=== PATIENT | male | born 1960 | race Native Hawaiian/Other Pacific Islander ===

== ENCOUNTER 2019-05-13 20:28 | Outpatient (CLI) | payer OTHER ==
[~2019-05-13 20:28] MED LIST: ADIPEX PO; BENA10TA3 PO; HYDR25TA60 PO
== END 2019-05-13 21:07 | disposition home or self-care (01) ==
LOC: LAB 20:28
DX: L03.818 Cellulitis of other sites (principal)

== ENCOUNTER 2019-06-25 05:44 | Emergency (ER) | payer OTHER ==
[~2019-06-25] VITALS: Ht 182.9 cm; Wt 94.8 kg
[2019-06-25 06:14] LABS: PLATELET COUNT 404 K/uL (142-355)
[2019-06-25 06:24] LABS: POTASSIUM 3.7 mmol/L (3.6-5.2)
[2019-06-25 07:46] VITALS: BP 124/72; TEMP 98.3
== END 2019-06-25 07:47 | disposition home or self-care (01) ==
LOC: ED 05:44
PROVIDERS: Emergency Medicine
DX: K52.89 Other specified noninfective gastroenteritis and colitis (principal); R10.84 Generalized abdominal pain
CPT/HCPCS: 36415; 80053; 82150; 83605; 83690; 85027; 96360; 96361; 96375; 99284; J1885; J2175; J2405

== ENCOUNTER 2019-06-29 16:50 | Inpatient (IN) | payer OTHER ==
[~2019-06-29] VITALS: Ht 182.9 cm; Wt 98.5 kg
[2019-06-29 18:47] VITALS: BP 112/67; TEMP 98.5; Ht 182.9 cm; Wt 98.5 kg
[2019-06-29 19:55] LABS: PLATELET COUNT 387 K/uL (142-355)
[2019-06-29 19:58] VITALS: BP 112/67; TEMP 98.4
[2019-06-29 23:55] VITALS: BP 128/66; TEMP 98.6
[2019-06-30] MEDS ORDERED: TEMA30CA18 PO (03:40)
[2019-06-30] MEDS ORDERED: EDLUAR10 MG SL (03:44)
[2019-06-30] MEDS ORDERED: OMEPRAZOLE DR20 MG PO (03:50)
[2019-06-30 04:00] VITALS: BP 109/54; TEMP 98.7
[2019-06-30] MEDS ORDERED: PRAVACHOL80 MG PO (07:32)
[2019-06-30] MEDS ORDERED: GLIP10TA55 PO (07:33)
[2019-06-30] MEDS ORDERED: METFORMIN ER1000 MG PO (07:33)
[2019-06-30] MEDS ORDERED: AMLODIPINE BESYLATE PO (07:35)
[2019-06-30] MEDS ORDERED: AMIT25TA22 PO (07:36)
[2019-06-30] MEDS ORDERED: HYDR10TA51 PO (07:38)
[2019-06-30 08:00] VITALS: BP 116/67; TEMP 98.3
[2019-06-30 12:00] VITALS: BP 101/46; TEMP 98
[2019-06-30 16:00] VITALS: BP 121/66; TEMP 98.2
[2019-06-30 17:33] LABS: PLATELET COUNT 376 K/uL (142-355)
[2019-06-30 17:44] LABS: POTASSIUM 3.5 mmol/L (3.6-5.2)
[2019-06-30 20:00] VITALS: BP 140/73; TEMP 99
[2019-07-01] VITALS (7 sets, daily range): BP systolic 99–142; BP diastolic 48–73; TEMP 97.1–98.5
[2019-07-01 15:46] LABS: PLATELET COUNT 359 K/uL (142-355)
[2019-07-01 15:55] LABS: POTASSIUM 3.8 mmol/L (3.6-5.2)
[2019-07-02 04:00] VITALS: BP 140/65; TEMP 98.1
[2019-07-02 04:57] LABS: PLATELET COUNT 338 K/uL (142-355)
[2019-07-02 05:06] LABS: POTASSIUM 4.1 mmol/L (3.6-5.2)
[2019-07-02 08:25] VITALS: BP 145/73; TEMP 98.5
[2019-07-02 12:00] VITALS: BP 153/84; TEMP 98.5
[2019-07-02 16:00] VITALS: BP 164/70; TEMP 98.5
[2019-07-02 20:00] VITALS: BP 124/70; TEMP 98.5
[2019-07-03] VITALS: BP 137/69; TEMP 98.4
[2019-07-03 04:00] VITALS: BP 133/65; TEMP 98.74
[2019-07-03 05:45] LABS: PLATELET COUNT 379 K/uL (142-355)
[2019-07-03 05:48] LABS: POTASSIUM 4.1 mmol/L (3.6-5.2)
[2019-07-03 08:03] VITALS: BP 156/67; TEMP 97.8
[2019-07-03 12:14] VITALS: BP 149/72; TEMP 98.6
== END 2019-07-03 15:15 | disposition home or self-care (01) | DRG 74 ==
LOC: MED/SURG 16:50
PROVIDERS: ADMIT Family Medicine
DX: E11.43 Type 2 diabetes mellitus with diabetic autonomic (poly)neuropathy (principal); E11.621 Type 2 diabetes mellitus with foot ulcer; D72.829 Elevated white blood cell count, unspecified; R14.0 Abdominal distension (gaseous); R11.2 Nausea with vomiting, unspecified; R33.9 Retention of urine, unspecified; I10 Essential (primary) hypertension; E78.5 Hyperlipidemia, unspecified; K31.84 Gastroparesis; K59.09 Other constipation
CPT/HCPCS: 36415; 80053; 81000; 82150; 82948; 83605; 83690; 83735; 85027; 87040; 96360; 96361; 96365; 96366; 96375; J1815; J2175; J2405; J2765; J3475; Q9963

== ENCOUNTER 2021-05-23 08:59 | Outpatient (CLI) | payer OTHER ==
[~2021-05-23] VITALS: Ht 182.9 cm; Wt 90.7 kg
[~2021-05-23 08:59] MED LIST changes: +AMIT25TA22 PO; +AMLODIPINE BESYLATE PO; +EDLUAR10 MG SL; +GLIP10TA55 PO; +HYDR10TA51 PO; +METFORMIN ER1000 MG PO; +OMEPRAZOLE DR20 MG PO; +PRAVACHOL80 MG PO; +TEMA30CA18 PO
[2021-05-23 09:06] VITALS: BP 134/72; TEMP 98.2
--- NOTE | 2021-05-23 10:54 | NUR ---
INFUSION COMPLETE AT 1042. FLUSHED LEFT UPPPER ARM PICC WITH 10 MLS NS FOLLOWED BY HEPARIN 100UNITS/1ML, CLAMPED PICC LINE, END CAP PLACED. PT HAD NOT ADVERSE REACTION. VITALS POST INFUSION: BP 129/71, PULSE 70, RESP 16, O2 SAT 100% ORA, TEMP 98.0 DISCHARGED HOME AMBULATORY.
== END 2021-05-23 19:26 | disposition home or self-care (01) ==
LOC: INF 08:59
PROVIDERS: ATTEND Internal Medicine Endocrinology, Diabetes & Metabolism
DX: M86.271 Subacute osteomyelitis, right ankle and foot (principal)
CPT/HCPCS: 96365; J0878; J1642

== ENCOUNTER 2021-05-24 08:37 | Outpatient (CLI) | payer OTHER ==
[~2021-05-24] VITALS: Ht 182.9 cm; Wt 90.7 kg
== END 2021-05-24 18:57 | disposition home or self-care (01) ==
LOC: INF 08:37
PROVIDERS: ATTEND Emergency Medicine Undersea and Hyperbaric Medicine
DX: M86.271 Subacute osteomyelitis, right ankle and foot (principal)
CPT/HCPCS: 96365; 96375; J0878; J1642

== ENCOUNTER 2021-05-25 08:53 | Outpatient (CLI) | payer OTHER ==
[~2021-05-25] VITALS: Ht 182.9 cm; Wt 90.7 kg
== END 2021-05-25 20:08 | disposition home or self-care (01) ==
LOC: INF 08:53
PROVIDERS: ATTEND Emergency Medicine Undersea and Hyperbaric Medicine
DX: M86.271 Subacute osteomyelitis, right ankle and foot (principal)
CPT/HCPCS: 96365; 96375; J0878; J1642

== ENCOUNTER 2021-05-26 08:47 | Outpatient (CLI) | payer OTHER ==
[~2021-05-26] VITALS: Ht 182.9 cm; Wt 90.7 kg
[2021-05-26 08:52] VITALS: BP 118/63; TEMP 98.2
== END 2021-05-26 18:58 | disposition home or self-care (01) ==
LOC: INF 08:47
PROVIDERS: ATTEND Internal Medicine Endocrinology, Diabetes & Metabolism
DX: M86.271 Subacute osteomyelitis, right ankle and foot (principal)
CPT/HCPCS: 96365; 96375; J0878; J1642

== ENCOUNTER 2021-05-27 09:13 | Outpatient (CLI) | payer OTHER ==
[~2021-05-27] VITALS: Ht 182.9 cm; Wt 90.7 kg
== END 2021-05-27 18:50 | disposition home or self-care (01) ==
LOC: INF 09:13
PROVIDERS: ATTEND Emergency Medicine Undersea and Hyperbaric Medicine
DX: M86.271 Subacute osteomyelitis, right ankle and foot (principal)
CPT/HCPCS: 96365; 96375; J0878; J1642

== ENCOUNTER 2021-05-28 10:08 | Outpatient (CLI) | payer OTHER ==
[~2021-05-28] VITALS: Ht 182.9 cm; Wt 90.7 kg
[2021-05-28 10:40] VITALS: BP 104/71; TEMP 98.2
== END 2021-05-28 19:45 | disposition home or self-care (01) ==
LOC: INF 10:08
PROVIDERS: ATTEND Emergency Medicine Undersea and Hyperbaric Medicine
DX: M86.271 Subacute osteomyelitis, right ankle and foot (principal)
CPT/HCPCS: 96365; 96367; J0878; J1642

== ENCOUNTER 2021-05-29 08:56 | Outpatient (CLI) | payer OTHER ==
[~2021-05-29] VITALS: Ht 182.9 cm; Wt 90.7 kg
== END 2021-05-29 19:21 | disposition home or self-care (01) ==
LOC: INF 08:56
PROVIDERS: ATTEND Emergency Medicine Undersea and Hyperbaric Medicine
DX: M86.271 Subacute osteomyelitis, right ankle and foot (principal); E11.621 Type 2 diabetes mellitus with foot ulcer
CPT/HCPCS: 96365; 96375; J0878

== ENCOUNTER 2021-05-30 08:30 | Outpatient (CLI) | payer OTHER ==
[~2021-05-30] VITALS: Ht 182.9 cm; Wt 90.7 kg
== END 2021-05-30 19:30 | disposition home or self-care (01) ==
LOC: INF 08:30
PROVIDERS: ATTEND Emergency Medicine Undersea and Hyperbaric Medicine
DX: M86.271 Subacute osteomyelitis, right ankle and foot (principal); E11.621 Type 2 diabetes mellitus with foot ulcer
CPT/HCPCS: 96365; J0878; J1642

== ENCOUNTER 2021-05-31 08:47 | Outpatient (CLI) | payer OTHER ==
[~2021-05-31] VITALS: Ht 182.9 cm; Wt 90.7 kg
== END 2021-05-31 19:08 | disposition home or self-care (01) ==
LOC: INF 08:47
PROVIDERS: ATTEND Emergency Medicine Undersea and Hyperbaric Medicine
DX: M86.271 Subacute osteomyelitis, right ankle and foot (principal); E11.621 Type 2 diabetes mellitus with foot ulcer
CPT/HCPCS: 96365; J0878

== ENCOUNTER 2021-06-01 08:39 | Outpatient (CLI) | payer OTHER ==
[~2021-06-01] VITALS: Ht 182.9 cm; Wt 90.7 kg
== END 2021-06-01 18:56 | disposition home or self-care (01) ==
LOC: INF 08:39
PROVIDERS: ATTEND Emergency Medicine Undersea and Hyperbaric Medicine
DX: M86.271 Subacute osteomyelitis, right ankle and foot (principal); E11.621 Type 2 diabetes mellitus with foot ulcer
CPT/HCPCS: 96365; J0878

== ENCOUNTER 2021-06-02 08:30 | Outpatient (CLI) | payer OTHER ==
[~2021-06-02] VITALS: Ht 182.9 cm; Wt 90.7 kg
== END 2021-06-02 18:51 | disposition home or self-care (01) ==
LOC: INF 08:30
PROVIDERS: ATTEND Emergency Medicine Undersea and Hyperbaric Medicine
DX: M86.271 Subacute osteomyelitis, right ankle and foot (principal); E11.621 Type 2 diabetes mellitus with foot ulcer
CPT/HCPCS: 96365; 96375; J0878

== ENCOUNTER 2021-06-03 08:37 | Outpatient (CLI) | payer OTHER ==
[~2021-06-03] VITALS: Ht 182.9 cm; Wt 90.7 kg
== END 2021-06-03 19:01 | disposition home or self-care (01) ==
LOC: INF 08:37
PROVIDERS: ATTEND Emergency Medicine Undersea and Hyperbaric Medicine
DX: M86.271 Subacute osteomyelitis, right ankle and foot (principal); E11.621 Type 2 diabetes mellitus with foot ulcer
CPT/HCPCS: 96365; 96375; J0878; J1642

== ENCOUNTER 2021-06-04 10:01 | Outpatient (CLI) | payer OTHER ==
[~2021-06-04] VITALS: Ht 182.9 cm; Wt 90.7 kg
== END 2021-06-04 21:22 | disposition home or self-care (01) ==
LOC: INF 10:01
PROVIDERS: ATTEND Emergency Medicine Undersea and Hyperbaric Medicine
DX: M86.271 Subacute osteomyelitis, right ankle and foot (principal); E11.621 Type 2 diabetes mellitus with foot ulcer
CPT/HCPCS: 96365; 96375; J0878; J1642

== ENCOUNTER 2021-06-05 08:34 | Outpatient (CLI) | payer OTHER ==
[~2021-06-05] VITALS: Ht 182.9 cm; Wt 90.7 kg
== END 2021-06-05 18:43 | disposition home or self-care (01) ==
LOC: INF 08:34
PROVIDERS: ATTEND Emergency Medicine Undersea and Hyperbaric Medicine
DX: M86.271 Subacute osteomyelitis, right ankle and foot (principal); E11.621 Type 2 diabetes mellitus with foot ulcer
CPT/HCPCS: 87070; 96365; J0878; J1650

== ENCOUNTER 2021-06-06 08:54 | Outpatient (CLI) | payer OTHER ==
[~2021-06-06] VITALS: Ht 182.9 cm; Wt 90.7 kg
[2021-06-06 08:55] VITALS: BP 112/62; TEMP 98.3
== END 2021-06-06 19:03 | disposition home or self-care (01) ==
LOC: INF 08:54
PROVIDERS: ATTEND Internal Medicine Endocrinology, Diabetes & Metabolism
DX: M86.271 Subacute osteomyelitis, right ankle and foot (principal); E11.621 Type 2 diabetes mellitus with foot ulcer
CPT/HCPCS: 96365; J0878

== ENCOUNTER 2021-06-07 08:42 | Outpatient (CLI) | payer OTHER ==
[2021-06-07 08:45] VITALS: BP 110/62; TEMP 98.3
== END 2021-06-07 18:41 | disposition home or self-care (01) ==
LOC: INF 08:42
PROVIDERS: ATTEND Emergency Medicine Undersea and Hyperbaric Medicine
DX: M86.271 Subacute osteomyelitis, right ankle and foot (principal); E11.621 Type 2 diabetes mellitus with foot ulcer
CPT/HCPCS: 96365

== ENCOUNTER 2021-06-08 08:50 | Outpatient (CLI) | payer OTHER | END 2021-06-08 23:00 | disposition home or self-care (01) | LOC: INF 08:50 | PROVIDERS: ATTEND Emergency Medicine Undersea and Hyperbaric Medicine | DX: M86.271 Subacute osteomyelitis, right ankle and foot (principal); E11.621 Type 2 diabetes mellitus with foot ulcer | CPT/HCPCS: 96365 ==

== ENCOUNTER 2021-06-09 09:03 | Outpatient (CLI) | payer OTHER ==
[~2021-06-09] VITALS: Ht 182.9 cm; Wt 90.7 kg
== END 2021-06-09 18:50 | disposition home or self-care (01) ==
LOC: INF 09:03
PROVIDERS: ATTEND Internal Medicine Endocrinology, Diabetes & Metabolism
DX: M86.271 Subacute osteomyelitis, right ankle and foot (principal); E11.621 Type 2 diabetes mellitus with foot ulcer
CPT/HCPCS: 96365; J0878

== ENCOUNTER 2021-06-10 08:30 | Outpatient (CLI) | payer OTHER ==
[~2021-06-10] VITALS: Ht 182.9 cm; Wt 90.7 kg
== END 2021-06-10 19:08 | disposition home or self-care (01) ==
LOC: INF 08:30
PROVIDERS: ATTEND Internal Medicine Endocrinology, Diabetes & Metabolism
DX: M86.271 Subacute osteomyelitis, right ankle and foot (principal); E11.621 Type 2 diabetes mellitus with foot ulcer
CPT/HCPCS: 96365; J0878; J1642

== ENCOUNTER 2021-06-11 10:02 | Outpatient (CLI) | payer OTHER ==
[~2021-06-11] VITALS: Ht 182.9 cm; Wt 90.7 kg
== END 2021-06-11 19:59 | disposition home or self-care (01) ==
LOC: INF 10:02
PROVIDERS: ATTEND Internal Medicine Endocrinology, Diabetes & Metabolism
DX: M86.271 Subacute osteomyelitis, right ankle and foot (principal); E11.621 Type 2 diabetes mellitus with foot ulcer
CPT/HCPCS: 96365; J0878

== ENCOUNTER 2021-06-12 08:44 | Outpatient (CLI) | payer OTHER ==
[~2021-06-12] VITALS: Ht 182.9 cm; Wt 90.7 kg
== END 2021-06-12 19:12 | disposition home or self-care (01) ==
LOC: INF 08:44
PROVIDERS: ATTEND Internal Medicine Endocrinology, Diabetes & Metabolism
DX: M86.271 Subacute osteomyelitis, right ankle and foot (principal); E11.621 Type 2 diabetes mellitus with foot ulcer
CPT/HCPCS: 96365; J0878

== ENCOUNTER 2021-06-13 08:45 | Outpatient (CLI) | payer OTHER ==
[~2021-06-13] VITALS: Ht 182.9 cm; Wt 90.7 kg
== END 2021-06-13 22:59 | disposition home or self-care (01) ==
LOC: INF 08:45
PROVIDERS: ATTEND Internal Medicine Endocrinology, Diabetes & Metabolism
DX: M86.271 Subacute osteomyelitis, right ankle and foot (principal); E11.621 Type 2 diabetes mellitus with foot ulcer
CPT/HCPCS: 96365; J0878

== ENCOUNTER 2021-06-14 08:04 | Outpatient (CLI) | payer OTHER | END 2021-06-14 18:58 | disposition home or self-care (01) | LOC: INF 08:04 | PROVIDERS: ATTEND Emergency Medicine Undersea and Hyperbaric Medicine | DX: M86.271 Subacute osteomyelitis, right ankle and foot (principal); E11.621 Type 2 diabetes mellitus with foot ulcer | CPT/HCPCS: 96360 ==

== ENCOUNTER 2021-06-15 08:44 | Outpatient (CLI) | payer OTHER | END 2021-06-15 18:55 | disposition home or self-care (01) | LOC: INF 08:44 | PROVIDERS: ATTEND Emergency Medicine Undersea and Hyperbaric Medicine | DX: M86.271 Subacute osteomyelitis, right ankle and foot (principal); E11.621 Type 2 diabetes mellitus with foot ulcer | CPT/HCPCS: 96365 ==

== ENCOUNTER 2021-06-16 11:39 | Outpatient (CLI) | payer OTHER ==
[~2021-06-16] VITALS: Ht 182.9 cm; Wt 90.7 kg
== END 2021-06-16 19:53 | disposition home or self-care (01) ==
LOC: INF 11:39
PROVIDERS: ATTEND Internal Medicine Endocrinology, Diabetes & Metabolism
DX: M86.271 Subacute osteomyelitis, right ankle and foot (principal); E11.621 Type 2 diabetes mellitus with foot ulcer
CPT/HCPCS: 96365; J0878

== ENCOUNTER 2021-06-17 07:44 | Outpatient (CLI) | payer OTHER ==
[~2021-06-17] VITALS: Ht 182.9 cm; Wt 90.7 kg
== END 2021-06-17 19:09 | disposition home or self-care (01) ==
LOC: INF 07:44
PROVIDERS: ATTEND Internal Medicine Endocrinology, Diabetes & Metabolism
DX: M86.271 Subacute osteomyelitis, right ankle and foot (principal); E11.621 Type 2 diabetes mellitus with foot ulcer
CPT/HCPCS: 96365; J0878

== ENCOUNTER 2021-06-20 07:35 | Outpatient (CLI) | payer OTHER ==
[~2021-06-20] VITALS: Ht 182.9 cm; Wt 90.7 kg
== END 2021-06-20 20:31 | disposition home or self-care (01) ==
LOC: INF 07:35
PROVIDERS: ATTEND Internal Medicine Endocrinology, Diabetes & Metabolism
DX: M86.271 Subacute osteomyelitis, right ankle and foot (principal); E11.621 Type 2 diabetes mellitus with foot ulcer
CPT/HCPCS: 96365; J0878

== ENCOUNTER 2021-06-21 09:01 | Outpatient (CLI) | payer OTHER ==
[~2021-06-21] VITALS: Ht 182.9 cm; Wt 90.7 kg
== END 2021-06-21 19:53 | disposition home or self-care (01) ==
LOC: INF 09:01
PROVIDERS: ATTEND Internal Medicine Endocrinology, Diabetes & Metabolism
DX: M86.271 Subacute osteomyelitis, right ankle and foot (principal); E11.621 Type 2 diabetes mellitus with foot ulcer
CPT/HCPCS: 96365; J0878

== ENCOUNTER 2021-06-24 10:53 | Outpatient (CLI) | payer OTHER ==
[~2021-06-24] VITALS: Ht 182.9 cm; Wt 90.7 kg
== END 2021-06-24 18:53 | disposition home or self-care (01) ==
LOC: INF 10:53
PROVIDERS: ATTEND Internal Medicine Endocrinology, Diabetes & Metabolism
DX: M86.271 Subacute osteomyelitis, right ankle and foot (principal); E11.621 Type 2 diabetes mellitus with foot ulcer
CPT/HCPCS: 96365; J0878

== ENCOUNTER 2021-06-25 07:53 | Outpatient (CLI) | payer OTHER ==
[~2021-06-25] VITALS: Ht 182.9 cm; Wt 90.7 kg
== END 2021-06-25 18:54 | disposition home or self-care (01) ==
LOC: INF 07:53
PROVIDERS: ATTEND Internal Medicine Endocrinology, Diabetes & Metabolism
DX: M86.271 Subacute osteomyelitis, right ankle and foot (principal)
CPT/HCPCS: 96365; J0878

== ENCOUNTER 2021-06-26 07:41 | Outpatient (CLI) | payer OTHER ==
[~2021-06-26] VITALS: Ht 182.9 cm; Wt 90.7 kg
== END 2021-06-26 18:52 | disposition home or self-care (01) ==
LOC: INF 07:41
PROVIDERS: ATTEND Internal Medicine Endocrinology, Diabetes & Metabolism
DX: M86.271 Subacute osteomyelitis, right ankle and foot (principal); E11.621 Type 2 diabetes mellitus with foot ulcer
CPT/HCPCS: 96365; J0878

== ENCOUNTER 2021-06-27 08:00 | Outpatient (CLI) | payer OTHER ==
[~2021-06-27] VITALS: Ht 182.9 cm; Wt 90.7 kg
== END 2021-06-27 20:24 | disposition home or self-care (01) ==
LOC: INF 08:00
PROVIDERS: ATTEND Internal Medicine Endocrinology, Diabetes & Metabolism
DX: M86.271 Subacute osteomyelitis, right ankle and foot (principal); E11.621 Type 2 diabetes mellitus with foot ulcer; R13.12 Dysphagia, oropharyngeal phase
CPT/HCPCS: 96365; J0878

== ENCOUNTER 2021-06-28 08:36 | Outpatient (CLI) | payer OTHER | END 2021-06-28 21:43 | disposition home or self-care (01) | LOC: INF 08:36 | PROVIDERS: ATTEND Internal Medicine Endocrinology, Diabetes & Metabolism | DX: M86.271 Subacute osteomyelitis, right ankle and foot (principal); E11.621 Type 2 diabetes mellitus with foot ulcer ==

== ENCOUNTER 2021-06-29 08:19 | Outpatient (CLI) | payer OTHER | END 2021-06-29 20:52 | disposition home or self-care (01) | LOC: INF 08:19 | PROVIDERS: ATTEND Internal Medicine Endocrinology, Diabetes & Metabolism | DX: M86.271 Subacute osteomyelitis, right ankle and foot (principal); E11.621 Type 2 diabetes mellitus with foot ulcer ==

== ENCOUNTER 2021-06-30 11:27 | Outpatient (CLI) | payer OTHER ==
[~2021-06-30] VITALS: Ht 182.9 cm; Wt 90.7 kg
== END 2021-06-30 20:58 | disposition home or self-care (01) ==
LOC: INF 11:27
PROVIDERS: ATTEND Internal Medicine Endocrinology, Diabetes & Metabolism
DX: M86.271 Subacute osteomyelitis, right ankle and foot (principal); E11.621 Type 2 diabetes mellitus with foot ulcer
CPT/HCPCS: 96365; J0878

== ENCOUNTER 2021-07-01 12:02 | Outpatient (CLI) | payer OTHER ==
[~2021-07-01] VITALS: Ht 182.9 cm; Wt 90.7 kg
== END 2021-07-01 19:01 | disposition home or self-care (01) ==
LOC: INF 12:02
PROVIDERS: ATTEND Internal Medicine Endocrinology, Diabetes & Metabolism
DX: M86.271 Subacute osteomyelitis, right ankle and foot (principal); E11.621 Type 2 diabetes mellitus with foot ulcer
CPT/HCPCS: 96365; J0878

== ENCOUNTER 2021-07-02 13:30 | Outpatient (CLI) | payer OTHER ==
[~2021-07-02] VITALS: Ht 182.9 cm; Wt 90.7 kg
== END 2021-07-02 19:00 | disposition home or self-care (01) ==
LOC: INF 13:30
PROVIDERS: ATTEND Internal Medicine Endocrinology, Diabetes & Metabolism
DX: M86.271 Subacute osteomyelitis, right ankle and foot (principal); E11.621 Type 2 diabetes mellitus with foot ulcer
CPT/HCPCS: 96365; J0878

== ENCOUNTER 2021-07-04 07:36 | Outpatient (CLI) | payer OTHER ==
[~2021-07-04] VITALS: Ht 182.9 cm; Wt 90.7 kg
== END 2021-07-04 23:03 | disposition home or self-care (01) ==
LOC: INF 07:36
PROVIDERS: ATTEND Internal Medicine Endocrinology, Diabetes & Metabolism
DX: M86.271 Subacute osteomyelitis, right ankle and foot (principal); E11.621 Type 2 diabetes mellitus with foot ulcer
CPT/HCPCS: 96365; J0878

== ENCOUNTER 2021-07-05 09:19 | Outpatient (CLI) | payer OTHER ==
[~2021-07-05] VITALS: Ht 182.9 cm; Wt 90.7 kg
== END 2021-07-05 19:59 | disposition home or self-care (01) ==
LOC: INF 09:19
PROVIDERS: ATTEND Internal Medicine Endocrinology, Diabetes & Metabolism
DX: M86.271 Subacute osteomyelitis, right ankle and foot (principal); E11.621 Type 2 diabetes mellitus with foot ulcer
CPT/HCPCS: 96365; J0878

== ENCOUNTER 2021-07-06 08:28 | Outpatient (CLI) | payer OTHER ==
[~2021-07-06] VITALS: Ht 182.9 cm; Wt 90.7 kg
== END 2021-07-06 19:04 | disposition home or self-care (01) ==
LOC: INF 08:28
PROVIDERS: ATTEND Internal Medicine Endocrinology, Diabetes & Metabolism
DX: M86.271 Subacute osteomyelitis, right ankle and foot (principal); E11.621 Type 2 diabetes mellitus with foot ulcer
CPT/HCPCS: 96365; J0878

== ENCOUNTER 2021-07-07 07:30 | Outpatient (CLI) | payer OTHER ==
[~2021-07-07] VITALS: Ht 182.9 cm; Wt 90.7 kg
== END 2021-07-07 18:59 | disposition home or self-care (01) ==
LOC: INF 07:30
PROVIDERS: ATTEND Internal Medicine Endocrinology, Diabetes & Metabolism
DX: M86.271 Subacute osteomyelitis, right ankle and foot (principal); E11.621 Type 2 diabetes mellitus with foot ulcer
CPT/HCPCS: 96365; J0878

== ENCOUNTER 2021-07-09 07:41 | Outpatient (CLI) | payer OTHER ==
[~2021-07-09] VITALS: Ht 182.9 cm; Wt 90.7 kg
== END 2021-07-09 19:30 | disposition home or self-care (01) ==
LOC: INF 07:41
PROVIDERS: ATTEND Emergency Medicine Undersea and Hyperbaric Medicine
DX: M86.271 Subacute osteomyelitis, right ankle and foot (principal); E11.621 Type 2 diabetes mellitus with foot ulcer
CPT/HCPCS: 96365; J0878

== ENCOUNTER 2021-07-10 07:27 | Outpatient (CLI) | payer OTHER ==
[~2021-07-10] VITALS: Ht 182.9 cm; Wt 90.7 kg
== END 2021-07-10 21:17 | disposition home or self-care (01) ==
LOC: INF 07:27
PROVIDERS: ATTEND Emergency Medicine Undersea and Hyperbaric Medicine
DX: M86.271 Subacute osteomyelitis, right ankle and foot (principal); E11.621 Type 2 diabetes mellitus with foot ulcer
CPT/HCPCS: 96365; J0878

== ENCOUNTER 2021-07-11 07:28 | Outpatient (CLI) | payer OTHER ==
[~2021-07-11] VITALS: Ht 182.9 cm; Wt 90.7 kg
== END 2021-07-11 20:27 | disposition home or self-care (01) ==
LOC: INF 07:28
PROVIDERS: ATTEND Emergency Medicine Undersea and Hyperbaric Medicine
DX: M86.271 Subacute osteomyelitis, right ankle and foot (principal); E11.621 Type 2 diabetes mellitus with foot ulcer
CPT/HCPCS: 96365; J0878

== ENCOUNTER 2021-07-12 07:20 | Outpatient (CLI) | payer OTHER | END 2021-07-12 19:16 | disposition home or self-care (01) | LOC: INF 07:20 | PROVIDERS: ATTEND Emergency Medicine Undersea and Hyperbaric Medicine | DX: M86.271 Subacute osteomyelitis, right ankle and foot (principal); E11.621 Type 2 diabetes mellitus with foot ulcer | CPT/HCPCS: 96365 ==

== ENCOUNTER 2021-07-13 08:58 | Outpatient (CLI) | payer OTHER | END 2021-07-13 20:15 | disposition home or self-care (01) | LOC: INF 08:58 | PROVIDERS: ATTEND Emergency Medicine Undersea and Hyperbaric Medicine | DX: M86.271 Subacute osteomyelitis, right ankle and foot (principal); E11.621 Type 2 diabetes mellitus with foot ulcer | CPT/HCPCS: 96365 ==

== ENCOUNTER 2021-07-15 11:09 | Outpatient (CLI) | payer OTHER ==
[~2021-07-15] VITALS: Ht 182.9 cm; Wt 88.5 kg
== END 2021-07-15 19:20 | disposition home or self-care (01) ==
LOC: INF 11:09
PROVIDERS: ATTEND Emergency Medicine Undersea and Hyperbaric Medicine
DX: M86.271 Subacute osteomyelitis, right ankle and foot (principal); E11.621 Type 2 diabetes mellitus with foot ulcer
CPT/HCPCS: J0878

== ENCOUNTER 2021-07-16 07:45 | Outpatient (CLI) | payer OTHER ==
[~2021-07-16] VITALS: Ht 182.9 cm; Wt 90.7 kg
== END 2021-07-16 18:52 | disposition home or self-care (01) ==
LOC: INF 07:45
PROVIDERS: ATTEND Emergency Medicine Undersea and Hyperbaric Medicine
DX: M86.271 Subacute osteomyelitis, right ankle and foot (principal); E11.621 Type 2 diabetes mellitus with foot ulcer
CPT/HCPCS: J0878

== ENCOUNTER 2021-07-18 07:33 | Outpatient (CLI) | payer OTHER ==
[~2021-07-18] VITALS: Ht 182.9 cm; Wt 90.7 kg
== END 2021-07-18 19:53 | disposition home or self-care (01) ==
LOC: INF 07:33
PROVIDERS: ATTEND Emergency Medicine Undersea and Hyperbaric Medicine
DX: M86.271 Subacute osteomyelitis, right ankle and foot (principal); E11.621 Type 2 diabetes mellitus with foot ulcer
CPT/HCPCS: 96365; J0878

== ENCOUNTER 2022-06-29 21:32 | Emergency (ER) | payer OTHER ==
[~2022-06-29] VITALS: Ht 182.9 cm; Wt 90.7 kg
[2022-06-29 22:06] LABS: PLATELET COUNT 451 K/uL (142-355)
[2022-06-29 22:19] LABS: POTASSIUM 3.7 mmol/L (3.6-5.2)
[2022-06-30 03:30] VITALS: BP 154/98; TEMP 98.6
== END 2022-06-30 03:30 | disposition short-term general hospital (02) ==
LOC: ED 21:32
PROVIDERS: Emergency Medicine Emergency Medical Services
DX: K56.1 Intussusception (principal); Z79.899 Other long term (current) drug therapy; Z51.81 Encounter for therapeutic drug level monitoring
CPT/HCPCS: 36415; 36600; 80053; 80307; 81000; 81002; 82150; 82805; 83605; 83690; 83735; 84484; 85027; 85379; 85610; 87088; 93005; 94664; 96361; 96374; 96375; 96376; 99284; J2060; J2270; J2405; J3490; Q9963